=== PATIENT | male | born 1970 | race Caucasian/White ===

== ENCOUNTER 2022-05-19 18:34 | Observation (INO) ==
[2022-05-19] MEDS ORDERED: Iopamidol - 370 500 ML MLS IVP ONE (21:58)
[2022-05-19 23:00] LABS: Basophils % 0.7 %; Eosinophils # 0.1 K/mcL (0.0-0.6); Eosinophils % 2.9 %; Hematocrit 28.2 % (37.5-50.1); Hemoglobin 9.5 g/dL (12.9-16.9); Immature Granulocytes % 0.2 % (0-4); Immature Platelets 7.2 % (1.1-6.1); Lymphocytes % 24.5 %; Mean Corpuscular HGB Conc 33.7 g/dL (31.6-35.5); Mean Corpuscular Hemoglobin 36.4 pg (28.0-33.3); Mean Platelet Volume 11.5 fL (9.4-12.4); Monocytes # 0.5 K/mcL (0.0-1.3); Monocytes % 10.9 %; Neutrophils # 2.6 K/mcL (1.6-8.9); Nucleated Red Blood Cells 0.5 /100 WBC (0); Platelet Count 79 K/mcL (140-400); Red Blood Count 2.61 M/mcL (4.19-5.50); Red Cell Distribution Width 15.8 % (11.5-14.5); Segmented Neutrophils % 60.8 %; White Blood Count 4.2 K/mcL (4.3-11.1)
[2022-05-19 23:11] LABS: Prothrombin Time 22.4 Seconds (9.4-12.1)
[2022-05-19 23:14] LABS: Alanine Aminotransferase 52 Units/L (7-52); Albumin 2.7 g/dL (3.5-5.7); Albumin/Globulin Ratio 0.8 (1.1-2.2); Alkaline Phosphatase 132 Units/L (34-104); Aspartate Amino Transferase 91 Units/L (13-39); BUN/Creatinine Ratio 13 (6-26); Bilirubin,Total 11.7 mg/dL (0.3-1.0); Blood Urea Nitrogen 13 mg/dL (6-20); Calcium 7.9 mg/dL (8.6-10.3); Carbon Dioxide 31 mEq/L (23-29); Chloride 98 mEq/L (98-107); Globulin 3.5 g/dL (2.4-3.5); Glucose 133 mg/dL (70-105); Osmolality,Calculated 280 (280-300); Potassium 3.5 mEq/L (3.5-5.1); Sodium 134 mEq/L (136-145); Total Protein 6.2 g/dL (6.4-8.9); eGFR For African Americans > 60 (> 60); eGFR For Non-African Americans > 60 (> 60)
[2022-05-19] MEDS ORDERED: Morphine Sulfate 2 MG/ML SYRINGE IVP ONE (23:22)
[2022-05-20] MEDS ORDERED: Naloxone 0.4 MG/ML INJ IVP PRN (02:19)
[2022-05-20] MEDS ORDERED: Melatonin 3 MG TABLET PO PRN (02:19)
[2022-05-20] MEDS ORDERED: Lactulose Oral Soln 20 GM/30 ML UDC PO PRN (03:42)
[2022-05-20 05:55] LABS: Hematocrit 27.2 % (37.5-50.1); Hemoglobin 9.1 g/dL (12.9-16.9); Immature Granulocytes % 0.3 % (0-4); Mean Corpuscular HGB Conc 33.5 g/dL (31.6-35.5); Red Cell Distribution Width 15.9 % (11.5-14.5)
[2022-05-20 05:57] LABS: Basophils % 0.6 %; Eosinophils # 0.1 K/mcL (0.0-0.6); Immature Platelets 6.4 % (1.1-6.1); Lymphocytes # 1.1 K/mcL (0.6-4.6); Lymphocytes % 29.8 %; Mean Corpuscular Volume 107.5 fL (83.0-100.0); Mean Platelet Volume 11.9 fL (9.4-12.4); Monocytes # 0.5 K/mcL (0.0-1.3); Monocytes % 13.2 %; Neutrophils # 1.9 K/mcL (1.6-8.9); Platelet Count 78 K/mcL (140-400); Red Blood Count 2.53 M/mcL (4.19-5.50); Segmented Neutrophils % 53.1 %; White Blood Count 3.6 K/mcL (4.3-11.1)
[2022-05-20 06:16] LABS: Prothrombin Time 22.4 Seconds (9.4-12.1)
[2022-05-20 06:18] LABS: Alanine Aminotransferase 46 Units/L (7-52); Albumin 2.4 g/dL (3.5-5.7); Albumin/Globulin Ratio 0.8 (1.1-2.2); Alkaline Phosphatase 131 Units/L (34-104); Amylase 29 Units/L (29-103); Aspartate Amino Transferase 80 Units/L (13-39); BUN/Creatinine Ratio 13 (6-26); Bilirubin,Direct 4.9 mg/dL (0.0-0.2); Bilirubin,Indirect 5.3 mg/dL (0.0-1.0); Bilirubin,Total 10.2 mg/dL (0.3-1.0); Blood Urea Nitrogen 13 mg/dL (6-20); Calcium 7.9 mg/dL (8.6-10.3); Carbon Dioxide 30 mEq/L (23-29); Chloride 99 mEq/L (98-107); Globulin 3.2 g/dL (2.4-3.5); Glucose 113 mg/dL (70-105); Lactate Dehydrogenase 231 Units/L (140-271); Osmolality,Calculated 277 (280-300); Potassium 3.5 mEq/L (3.5-5.1); Sodium 133 mEq/L (136-145); Total Protein 5.6 g/dL (6.4-8.9); eGFR For African Americans > 60 (> 60); eGFR For Non-African Americans > 60 (> 60)
[2022-05-20] MEDS: Ibuprofen 400 MG TABLET PO PRN (06:40)
[2022-05-20 07:29] LABS: Hepatitis B Core IgM Nonreactive (Nonreactive)
[2022-05-20 07:30] LABS: Hepatitis A Antibody IgM Nonreactive (Nonreactive)
[2022-05-20] MEDS ORDERED: Furosemide 20 MG TABLET PO SCH (09:00)
[2022-05-20] MEDS: Furosemide 40 MG TABLET PO SCH ×2 (09:09→15:40)
[2022-05-20] MEDS: Nicotine 21 MG PATCH.TD24 TD SCH (09:10)
[2022-05-20] MEDS: Lactulose Oral Soln 20 GM/30 ML UDC PO SCH ×3 (09:10→21:37)
[2022-05-20] MEDS: cefTRIAXone 1,000 MG in 0.9 % Sodium Chloride 10 ML IVP SCH (09:14)
[2022-05-20] MEDS: FLUoxetine HCl 10 MG CAPSULE PO SCH (09:24)
[2022-05-20] MEDS: Tenofovir Disoproxil Fumarate 300 MG TABLET PO SCH (09:24)
[2022-05-20 11:02] LABS: Hepatitis B Surface Antigen Reactive (Nonreactive)
[2022-05-20 11:44] LABS: Hepatitis C Virus Antibody Reactive (Nonreactive)
[2022-05-20] MEDS: *HR* OxyCODONE ER (12 HR) 10 MG TABLET PO PRN (17:33)
[2022-05-21] MEDS: Furosemide 40 MG TABLET PO SCH ×2 (08:06→15:56)
[2022-05-21] MEDS: Nicotine 21 MG PATCH.TD24 TD SCH (08:06)
[2022-05-21] MEDS: FLUoxetine HCl 10 MG CAPSULE PO SCH (08:06)
[2022-05-21] MEDS: Lactulose Oral Soln 20 GM/30 ML UDC PO SCH ×3 (08:06→20:25)
[2022-05-21] MEDS: cefTRIAXone 1,000 MG in 0.9 % Sodium Chloride 10 ML IVP SCH (08:07)
[2022-05-21] MEDS: Tenofovir Disoproxil Fumarate 300 MG TABLET PO SCH (08:07)
[2022-05-21] MEDS ORDERED: 0.9 % Sodium Chloride 250 ML IVC ONE (08:17)
[2022-05-21 10:57] LABS: INR 1.9; Prothrombin Time 21.6 Seconds (9.4-12.1)
[2022-05-21 11:15] LABS: Albumin 2.4 g/dL (3.5-5.7); Albumin/Globulin Ratio 0.8 (1.1-2.2); Calcium 8.4 mg/dL (8.6-10.3); Globulin 3.2 g/dL (2.4-3.5); Magnesium 1.8 mg/dL (1.6-2.6); Phosphorous 3.6 mg/dL (2.7-4.5); Potassium 3.9 mEq/L (3.5-5.1); Total Protein 5.6 g/dL (6.4-8.9)
[2022-05-21 11:16] LABS: Albumin 2.3 g/dL (3.5-5.7); Albumin/Globulin Ratio 0.8 (1.1-2.2); Bilirubin,Direct 6.9 mg/dL (0.0-0.2); Bilirubin,Indirect 7.4 mg/dL (0.0-1.0); Bilirubin,Total 14.3 mg/dL (0.3-1.0); Total Protein 5.3 g/dL (6.4-8.9)
[2022-05-21] MEDS: Albumin 25% 25gram/100mL 25 GM/100 ML IV.SOLN IVPB SCH ×3 (11:18→22:50)
[2022-05-21 12:41] LABS: Basophils % 1.3 %; Eosinophils % 2.4 %; Red Cell Distribution Width 15.9 % (11.5-14.5)
[2022-05-21 12:43] LABS: Basophils # 0.1 K/mcL (0.0-0.2); Eosinophils # 0.1 K/mcL (0.0-0.6); Hematocrit 27.9 % (37.5-50.1); Hemoglobin 9.6 g/dL (12.9-16.9); Immature Granulocytes % 2.9 % (0-4); Immature Platelets 7.6 % (1.1-6.1); Lymphocytes # 1.3 K/mcL (0.6-4.6); Lymphocytes % 29.7 %; Mean Corpuscular HGB Conc 34.4 g/dL (31.6-35.5); Mean Corpuscular Hemoglobin 36.6 pg (28.0-33.3); Mean Corpuscular Volume 106.5 fL (83.0-100.0); Monocytes # 0.7 K/mcL (0.0-1.3); Monocytes % 15.7 %; Neutrophils # 2.2 K/mcL (1.6-8.9); Red Blood Count 2.62 M/mcL (4.19-5.50); White Blood Count 4.5 K/mcL (4.3-11.1)
[2022-05-21 12:53] LABS: Platelet Count 66 K/mcL (140-400)
[2022-05-21] MEDS: Ibuprofen 400 MG TABLET PO PRN (14:00)
[2022-05-21 19:23] VITALS: O2SAT 96
[2022-05-21 23:05] VITALS: BP 93/57; PULSE 70; TEMP 97.3
[2022-05-21] MEDS: *HR* OxyCODONE ER (12 HR) 10 MG TABLET PO PRN (23:08)
== END 2022-05-21 23:30 | disposition short-term general hospital (02) ==
LOC: EMEROOARM 18:34 → 3NENU 18:34 → SUATTDRO 05-20 02:14 → 3NENU 05-20 04:20
PROVIDERS: ADMIT Internal Medicine; ATTEND Internal Medicine

== ENCOUNTER 2022-07-23 11:21 | Observation (INO) ==
[2022-07-23] MEDS ORDERED: Iopamidol - 370 500 ML MLS IVP ONE (12:39)
[2022-07-23 12:53] LABS: Basophils # 0.1 K/mcL (0.0-0.2); Basophils % 0.7 %; Eosinophils # 0.2 K/mcL (0.0-0.6); Eosinophils % 2.6 %; Hematocrit 28.8 % (37.5-50.1); Hemoglobin 9.7 g/dL (12.9-16.9); Immature Granulocytes % 0.3 % (0-4); Lymphocytes # 1.1 K/mcL (0.6-4.6); Lymphocytes % 15.5 %; Mean Corpuscular HGB Conc 33.7 g/dL (31.6-35.5); Mean Corpuscular Hemoglobin 36.5 pg (28.0-33.3); Mean Corpuscular Volume 108.3 fL (83.0-100.0); Mean Platelet Volume 9.9 fL (9.4-12.4); Monocytes # 0.6 K/mcL (0.0-1.3); Monocytes % 8.7 %; Neutrophils # 5.1 K/mcL (1.6-8.9); Platelet Count 100 K/mcL (140-400); Red Blood Count 2.66 M/mcL (4.19-5.50); Red Cell Distribution Width 15.1 % (11.5-14.5); Segmented Neutrophils % 72.2 %
[2022-07-23 13:23] LABS: Alanine Aminotransferase 84 Units/L (7-52); Albumin 2.1 g/dL (3.5-5.7); Albumin/Globulin Ratio 0.6 (1.1-2.2); Alkaline Phosphatase 131 Units/L (34-104); Aspartate Amino Transferase 279 Units/L (13-39); BUN/Creatinine Ratio 21 (6-26); Bilirubin,Indirect 3.7 mg/dL (0.0-1.0); Bilirubin,Total 7.7 mg/dL (0.3-1.0); Blood Urea Nitrogen 22 mg/dL (6-20); Calcium 7.7 mg/dL (8.6-10.3); Carbon Dioxide 33 mEq/L (23-29); Chloride 88 mEq/L (98-107); Globulin 3.4 g/dL (2.4-3.5); Glucose 153 mg/dL (70-105); Lipase 39 Units/L (11-82); Osmolality,Calculated 272 (280-300); Potassium 2.6 mEq/L (3.5-5.1); Sodium 128 mEq/L (136-145); Total Protein 5.5 g/dL (6.4-8.9); Troponin I < 0.03 ng/mL (< 0.04)
[2022-07-23] MEDS ORDERED: cefTRIAXone 2,000 MG in 0.9 % Sodium Chloride 20 ML IVP ONE (14:22)
[2022-07-23 14:42] LABS: Bacteria,Urine Few per hpf (None-Few); Bilirubin,Urine Small (Negative); Blood,Urine Moderate (Negative); Clarity,Urine Clear (Clear); Color,Urine Dark-Yellow (Yellow); Glucose,Urine (UA) Normal (Normal); Hyaline Casts,Urine Few per lpf (None Seen); Ketones,Urine Negative (Negative); Leukocyte Esterase,Urine Negative (Negative); Mucus,Urine Few per lpf (None-Few); Nitrite,Urine Negative (Negative); PH,Urine 6.5 pH Units (5.0-8.0); Protein,Urine Trace mg/dL (Neg-Trace); Specific Gravity,Urine 1.027 (1.010-1.025); Squamous Epithelial Cell,Urine Few per hpf (None-Few); Urobilinogen,Urine >=8.0 mg/dL (Normal); WBC,Urine 0-3 per hpf (0-3)
[2022-07-23 15:00] LABS: INR 2.2; Prothrombin Time 24.7 Seconds (9.4-12.1)
[2022-07-23 15:25] LABS: Influenza A PCR Negative (Negative); Influenza B PCR Negative (Negative); Resp. Syncytial Virus PCR Negative (Negative)
[2022-07-23 15:37] LABS: SARS-CoV-2 by PCR (In House) Negative (Negative)
[2022-07-23] MEDS ORDERED: Ondansetron 4 MG/2 ML VIAL IVP PRN (16:07)
[2022-07-23] MEDS ORDERED: Naloxone 0.4 MG/ML INJ IVP PRN (16:07)
[2022-07-23] MEDS ORDERED: Acetaminophen 325 MG TABLET PO PRN (16:07)
[2022-07-23] MEDS ORDERED: Lactulose 200 GM, Sodium Chloride IRRigation 700 ML RC ONE (16:09)
[2022-07-23] MEDS: MetroNIDAZOLE 500 MG/100 ML 500 MG/100 ML BAG IVPB SCH (17:41)
[2022-07-23] MEDS: Lactulose Oral Soln 20 GM/30 ML UDC PO SCH (21:14)
[2022-07-24] MEDS: MetroNIDAZOLE 500 MG/100 ML 500 MG/100 ML BAG IVPB SCH ×2 (01:18→13:05)
[2022-07-24 05:02] LABS: Immature Granulocytes % 0.4 % (0-4); Mean Corpuscular Hemoglobin 36.8 pg (28.0-33.3)
[2022-07-24 05:04] LABS: Basophils % 0.7 %; Eosinophils # 0.2 K/mcL (0.0-0.6); Eosinophils % 3.3 %; Hematocrit 23.8 % (37.5-50.1); Hemoglobin 8.1 g/dL (12.9-16.9); Lymphocytes # 1.3 K/mcL (0.6-4.6); Lymphocytes % 23.9 %; Mean Corpuscular Volume 108.2 fL (83.0-100.0); Mean Platelet Volume 9.8 fL (9.4-12.4); Monocytes # 0.5 K/mcL (0.0-1.3); Monocytes % 8.7 %; Neutrophils # 3.5 K/mcL (1.6-8.9); Nucleated Red Blood Cells 0.4 /100 WBC (0); Red Cell Distribution Width 15.5 % (11.5-14.5); White Blood Count 5.5 K/mcL (4.3-11.1)
[2022-07-24 05:11] LABS: Platelet Count 84 K/mcL (140-400)
[2022-07-24 05:26] LABS: Alanine Aminotransferase 66 Units/L (7-52); Albumin 1.7 g/dL (3.5-5.7); Albumin/Globulin Ratio 0.6 (1.1-2.2); Alkaline Phosphatase 99 Units/L (34-104); Aspartate Amino Transferase 201 Units/L (13-39); BUN/Creatinine Ratio 20 (6-26); Bilirubin,Direct 3.1 mg/dL (0.0-0.2); Bilirubin,Indirect 3.1 mg/dL (0.0-1.0); Bilirubin,Total 6.2 mg/dL (0.3-1.0); Blood Urea Nitrogen 19 mg/dL (6-20); Calcium 7.3 mg/dL (8.6-10.3); Carbon Dioxide 32 mEq/L (23-29); Chloride 92 mEq/L (98-107); Globulin 2.8 g/dL (2.4-3.5); Glucose 121 mg/dL (70-105); Magnesium 1.7 mg/dL (1.6-2.6); Osmolality,Calculated 270 (280-300); Potassium 3.3 mEq/L (3.5-5.1); Sodium 128 mEq/L (136-145); Total Protein 4.5 g/dL (6.4-8.9)
[2022-07-24 08:19] VITALS: O2SAT 87
[2022-07-24] MEDS: Lactulose Oral Soln 20 GM/30 ML UDC PO SCH (08:50)
[2022-07-24 10:24] LABS: RBC,Peritoneal Fluid < 2000 RBC/mcL
[2022-07-24 10:25] LABS: Amphetamine Screen,Urine Positive ng/mL (Cutoff=1000); Barbiturate Screen,Urine Negative ng/mL (Cutoff=200); Benzodiazepines Screen,Urine Negative ng/mL (Cutoff=200); Cannabinoid Screen,Urine Negative ng/mL (Cutoff = 50); Cocaine Screen,Urine Negative ng/mL (Cutoff= 300); Opiate Screen,Urine Negative ng/mL (Cutoff=300); Phencyclidine Screen,Urine Negative ng/mL (Cutoff=25)
[2022-07-24 10:51] LABS: Glucose,Peritoneal Fluid 114 mg/dL (No Ref Range); LDH,Peritoneal Fluid < 25 Units/L (No Ref Range); Total Protein,Peritoneal Fluid < 2.0 g/dL
[2022-07-24] MEDS ORDERED: Tenofovir Disoproxil Fumarate 300 MG TABLET PO SCH (11:15)
[2022-07-24] MEDS ORDERED: Potassium Chloride Elixir 20 MEQ/15 ML UDC PO ONE (11:22)
[2022-07-24] MEDS ORDERED: cefTRIAXone 1,000 MG in Water for inj. (sterile) 10 ML IVP SCH (13:00)
[2022-07-24 13:28] VITALS: BP 91/46; PULSE 79; TEMP 97.4
[2022-07-24 13:56] LABS: Appearance of Peritoneal Fl CLEAR (Clear); Basophils,Peritoneal Fluid 0 %; Eosinophils,Peritoneal Fluid 0 %
[2022-07-24] MEDS ORDERED: MetroNIDAZOLE 500 MG/100 ML 500 MG/100 ML BAG IVPB SCH ×2 (14:00→21:00)
[2022-07-24] MEDS ORDERED: Furosemide 40 MG TABLET PO SCH (17:00)
[2022-07-25] MEDS ORDERED: FLUoxetine HCl 10 MG CAPSULE PO SCH (09:00)
[2022-07-25] MEDS ORDERED: Tenofovir Disoproxil Fumarate 300 MG TABLET PO SCH (09:00)
[2022-07-26 10:32] LABS: Fluid Source for Albumin ASCITES
== END 2022-07-24 15:36 | disposition home or self-care (01) ==
LOC: EMEROOARM 11:21 → 2NENU 11:21
PROVIDERS: ADMIT Hospitalist; ATTEND Hospitalist

== ENCOUNTER 2022-08-01 20:56 | Inpatient (IN) ==
[2022-08-01 22:44] LABS: Basophils # 0.1 K/mcL (0.0-0.2); Basophils % 0.8 %; Eosinophils # 0.1 K/mcL (0.0-0.6); Eosinophils % 1.2 %; Hematocrit 25.5 % (37.5-50.1); Hemoglobin 8.3 g/dL (12.9-16.9); Immature Granulocytes % 0.5 % (0-4); Immature Platelets 4.4 % (1.1-6.1); Lymphocytes % 20.6 %; Mean Corpuscular HGB Conc 32.5 g/dL (31.6-35.5); Mean Corpuscular Hemoglobin 36.4 pg (28.0-33.3); Mean Corpuscular Volume 111.8 fL (83.0-100.0); Monocytes # 0.5 K/mcL (0.0-1.3); Monocytes % 6.8 %; Red Blood Count 2.28 M/mcL (4.19-5.50); Red Cell Distribution Width 15.6 % (11.5-14.5); Segmented Neutrophils % 70.1 %; White Blood Count 7.5 K/mcL (4.3-11.1)
[2022-08-01 22:45] LABS: Lymphocytes # 1.6 K/mcL (0.6-4.6); Neutrophils # 5.3 K/mcL (1.6-8.9); Platelet Count 68 K/mcL (140-400)
[2022-08-01 22:46] LABS: Macrocytosis Present (Not Present)
[2022-08-01 22:50] LABS: Prothrombin Time 22.5 Seconds (9.4-12.1)
[2022-08-02 00:01] LABS: Albumin 1.9 g/dL (3.5-5.7); Albumin/Globulin Ratio 0.6 (1.1-2.2); Bilirubin,Direct 3.9 mg/dL (0.0-0.2); Bilirubin,Indirect 4.2 mg/dL (0.0-1.0); Bilirubin,Total 8.1 mg/dL (0.3-1.0); Calcium 8.2 mg/dL (8.6-10.3); Globulin 3.2 g/dL (2.4-3.5); Potassium 4.1 mEq/L (3.5-5.1); Total Protein 5.1 g/dL (6.4-8.9); Troponin I 0.03 ng/mL (< 0.04)
[2022-08-02] MEDS ORDERED: 0.9 % Sodium Chloride 500 ML IVC ONE (00:08)
[2022-08-02] MEDS ORDERED: Lactulose Oral Soln 20 GM/30 ML UDC PO ONE (00:25)
[2022-08-02] MEDS ORDERED: Melatonin 3 MG TABLET PO PRN (02:04)
[2022-08-02] MEDS ORDERED: Naloxone 0.4 MG/ML INJ IVP PRN (02:04)
[2022-08-02] MEDS ORDERED: Ondansetron ODT 4 MG TAB.RAPDIS SL PRN (02:04)
[2022-08-02 03:53] LABS: Basophils % 0.6 %; Mean Platelet Volume 10.5 fL (9.4-12.4); Red Cell Distribution Width 15.9 % (11.5-14.5)
[2022-08-02 03:55] LABS: Eosinophils # 0.1 K/mcL (0.0-0.6); Eosinophils % 2.1 %; Hematocrit 23.9 % (37.5-50.1); Hemoglobin 7.9 g/dL (12.9-16.9); Immature Granulocytes % 0.6 % (0-4); Immature Platelets 3.7 % (1.1-6.1); Lymphocytes # 1.7 K/mcL (0.6-4.6); Lymphocytes % 25.6 %; Mean Corpuscular HGB Conc 33.1 g/dL (31.6-35.5); Mean Corpuscular Hemoglobin 36.6 pg (28.0-33.3); Mean Corpuscular Volume 110.6 fL (83.0-100.0); Monocytes # 0.6 K/mcL (0.0-1.3); Monocytes % 8.4 %; Red Blood Count 2.16 M/mcL (4.19-5.50); Segmented Neutrophils % 62.7 %; White Blood Count 6.8 K/mcL (4.3-11.1)
[2022-08-02 03:57] LABS: Neutrophils # 4.3 K/mcL (1.6-8.9); Platelet Count 62 K/mcL (140-400)
[2022-08-02 04:01] LABS: Prothrombin Time 21.8 Seconds (9.4-12.1)
[2022-08-02 04:12] LABS: Albumin 1.8 g/dL (3.5-5.7); Albumin/Globulin Ratio 0.6 (1.1-2.2); Bilirubin,Direct 3.5 mg/dL (0.0-0.2); Bilirubin,Indirect 3.8 mg/dL (0.0-1.0); Bilirubin,Total 7.3 mg/dL (0.3-1.0); Calcium 7.9 mg/dL (8.6-10.3); Magnesium 1.7 mg/dL (1.6-2.6); Potassium 3.9 mEq/L (3.5-5.1); Total Protein 4.8 g/dL (6.4-8.9)
[2022-08-02 04:25] LABS: Thyroid Stimulating Hormone 8.752 mcIU/mL (0.340-5.600)
[2022-08-02 04:30] LABS: Macrocytosis Present (Not Present); Platelet Estimate Decreased (Normal)
[2022-08-02] MEDS ORDERED: Vancomycin 1,500 MG/265 ML IV.SOLN IVPB ONE (07:00)
[2022-08-02] MEDS: 0.9 % Sodium Chloride 1,000 ML IVC SCH ×2 (07:26→19:57)
[2022-08-02] MEDS ORDERED: Lactulose Oral Soln 20 GM/30 ML UDC PO SCH (09:00)
[2022-08-02 10:19] LABS: Mean Platelet Volume 10.7 fL (9.4-12.4); Red Cell Distribution Width 15.9 % (11.5-14.5)
[2022-08-02 10:21] LABS: Hemoglobin 7.7 g/dL (12.9-16.9); Immature Platelets 4.6 % (1.1-6.1); Mean Corpuscular HGB Conc 33.5 g/dL (31.6-35.5); Mean Corpuscular Hemoglobin 36.8 pg (28.0-33.3); Red Blood Count 2.09 M/mcL (4.19-5.50); White Blood Count 6.2 K/mcL (4.3-11.1)
[2022-08-02] MEDS: cefTRIAXone 1,000 MG in 0.9 % Sodium Chloride Mini Bag 100 ML IVPB SCH (11:18)
[2022-08-02 14:03] LABS: Bilirubin,Urine Small (Negative); Blood,Urine Negative (Negative); Clarity,Urine Clear (Clear); Color,Urine Dark-Yellow (Yellow); Glucose,Urine (UA) Normal (Normal); Ketones,Urine Negative (Negative); Leukocyte Esterase,Urine Negative (Negative); Nitrite,Urine Negative (Negative); Protein,Urine Trace mg/dL (Neg-Trace); Specific Gravity,Urine 1.025 (1.010-1.025); Urobilinogen,Urine >=8.0 mg/dL (Normal)
[2022-08-02 14:07] LABS: Amorphous Sediment,Urine Few per hpf (None-Few); Bacteria,Urine Few per hpf (None-Few); Mucus,Urine Few per lpf (None-Few); RBC,Urine 0-3 per hpf (0-3); Squamous Epithelial Cell,Urine Few per hpf (None-Few); WBC,Urine 0-3 per hpf (0-3)
[2022-08-02] MEDS ORDERED: *HR* LORazepam 1 MG TABLET PO PRN ×3 (15:13)
[2022-08-02] MEDS ORDERED: Iopamidol - 370 500 ML MLS IVP ONE (15:21)
[2022-08-02] MEDS ORDERED: *HR* Labetalol 20 MG/4 ML SYRINGE IVP PRN (15:44)
[2022-08-02 16:10] LABS: Amphetamine Screen,Urine Positive ng/mL (Cutoff=1000); Barbiturate Screen,Urine Negative ng/mL (Cutoff=200); Benzodiazepines Screen,Urine Negative ng/mL (Cutoff=200); Cannabinoid Screen,Urine Negative ng/mL (Cutoff = 50); Cocaine Screen,Urine Negative ng/mL (Cutoff= 300); Opiate Screen,Urine Negative ng/mL (Cutoff=300); Phencyclidine Screen,Urine Negative ng/mL (Cutoff=25)
[2022-08-02 18:24] LABS: Adenovirus Not Detected (Not Detect); Coronavirus 229E Not Detected (Not Detect); Coronavirus HKU1 Not Detected (Not Detect); Coronavirus NL63 Not Detected (Not Detect); Coronavirus OC43 Not Detected (Not Detect)
[2022-08-02 18:25] LABS: Bordetella Pertussis Not Detected (Not Detect); Chlamydophila pneumoniae Not Detected (Not Detect); Human Metapneumovirus Not Detected (Not Detect); Human Rhinovirus/Enterovirus DETECTED (Not Detect); Influenza A Subtype 2009 H1 Not Detected (Not Detect); Influenza B Not Detected (Not Detect); Mycoplasma pneumoniae Not Detected (Not Detect); Parainfluenza Virus 1 Not Detected (Not Detect); Parainfluenza Virus 2 Not Detected (Not Detect); Parainfluenza Virus 3 Not Detected (Not Detect); Parainfluenza Virus 4 Not Detected (Not Detect); Respiratory Syncytial Virus Not Detected (Not Detect); SARS-CoV-2 Not Detected (Not Detect)
[2022-08-02] MEDS: Lactulose Oral Soln 20 GM/30 ML UDC PO SCH (21:30)
[2022-08-03] MEDS: 0.9 % Sodium Chloride 1,000 ML IVC SCH ×3 (00:31→16:36)
[2022-08-03] MEDS: Levothyroxine 25 MCG TABLET PO SCH (06:00)
[2022-08-03 06:41] LABS: Hematocrit 23.9 % (37.5-50.1); Mean Platelet Volume 10.7 fL (9.4-12.4)
[2022-08-03 06:42] LABS: Hemoglobin 7.9 g/dL (12.9-16.9); Immature Platelets 4.4 % (1.1-6.1); Mean Corpuscular HGB Conc 33.1 g/dL (31.6-35.5); Mean Corpuscular Hemoglobin 37.1 pg (28.0-33.3); Mean Corpuscular Volume 112.2 fL (83.0-100.0); Nucleated Red Blood Cells 0.3 /100 WBC (0); Red Blood Count 2.13 M/mcL (4.19-5.50); Red Cell Distribution Width 15.9 % (11.5-14.5); White Blood Count 5.7 K/mcL (4.3-11.1)
[2022-08-03 06:48] LABS: Platelet Count 60 K/mcL (140-400)
[2022-08-03 06:59] LABS: Albumin 1.7 g/dL (3.5-5.7); Albumin/Globulin Ratio 0.6 (1.1-2.2); Bilirubin,Direct 3.6 mg/dL (0.0-0.2); Bilirubin,Indirect 4.3 mg/dL (0.0-1.0); Bilirubin,Total 7.9 mg/dL (0.3-1.0); Calcium 7.6 mg/dL (8.6-10.3); Magnesium 1.5 mg/dL (1.6-2.6); Potassium 3.8 mEq/L (3.5-5.1); Total Protein 4.7 g/dL (6.4-8.9)
[2022-08-03 07:15] LABS: Lymphocytes # 0.7 K/mcL (0.6-4.6); Monocytes # 0.1 K/mcL (0.0-1.3); Neutrophils # 4.9 K/mcL (1.6-8.9); Platelet Estimate Marked Decrease (Normal)
[2022-08-03] MEDS: Vitamin B Complex/Vit C/Vit E 1 EACH TABLET PO SCH (08:16)
[2022-08-03] MEDS: Thiamine (B-1) 100 MG TABLET PO SCH (08:16)
[2022-08-03] MEDS: Lactulose Oral Soln 20 GM/30 ML UDC PO SCH ×4 (08:16→20:24)
[2022-08-03] MEDS: Folic Acid 1 MG TABLET PO SCH (08:16)
[2022-08-03] MEDS: cefTRIAXone 1,000 MG in 0.9 % Sodium Chloride Mini Bag 100 ML IVPB SCH (09:29)
[2022-08-03] MEDS: Vancomycin 1,500 MG/265 ML IV.SOLN IVPB SCH (10:30)
[2022-08-04] MEDS: 0.9 % Sodium Chloride 1,000 ML IVC SCH ×2 (03:06→16:26)
[2022-08-04] MEDS: *HR* OxyCODONE Immed Rel 5 MG TABLET PO PRN (03:06)
[2022-08-04] MEDS: Levothyroxine 25 MCG TABLET PO SCH (05:18)
[2022-08-04 05:47] LABS: Mean Platelet Volume 10.6 fL (9.4-12.4); Red Cell Distribution Width 16.1 % (11.5-14.5)
[2022-08-04 05:49] LABS: Basophils # 0.1 K/mcL (0.0-0.2); Basophils % 1.2 %; Eosinophils # 0.2 K/mcL (0.0-0.6); Eosinophils % 3.3 %; Hematocrit 25.1 % (37.5-50.1); Immature Granulocytes % 0.7 % (0-4); Immature Platelets 3.8 % (1.1-6.1); Lymphocytes # 1.4 K/mcL (0.6-4.6); Mean Corpuscular HGB Conc 31.9 g/dL (31.6-35.5); Mean Corpuscular Volume 116.2 fL (83.0-100.0); Monocytes # 0.6 K/mcL (0.0-1.3); Monocytes % 8.5 %; Neutrophils # 4.4 K/mcL (1.6-8.9); Red Blood Count 2.16 M/mcL (4.19-5.50); Segmented Neutrophils % 65.3 %; White Blood Count 6.7 K/mcL (4.3-11.1)
[2022-08-04 05:52] LABS: Platelet Count 66 K/mcL (140-400)
[2022-08-04 06:07] LABS: Albumin 1.8 g/dL (3.5-5.7); Albumin/Globulin Ratio 0.6 (1.1-2.2); Bilirubin,Direct 3.9 mg/dL (0.0-0.2); Bilirubin,Indirect 4.5 mg/dL (0.0-1.0); Bilirubin,Total 8.4 mg/dL (0.3-1.0); Calcium 7.4 mg/dL (8.6-10.3); Magnesium 1.6 mg/dL (1.6-2.6); Potassium 3.6 mEq/L (3.5-5.1); Total Protein 4.8 g/dL (6.4-8.9)
[2022-08-04 06:17] LABS: Macrocytosis Present (Not Present); Platelet Estimate Decreased (Normal)
[2022-08-04] MEDS: Vancomycin 1,500 MG/265 ML IV.SOLN IVPB SCH (08:02)
[2022-08-04] MEDS ORDERED: Vancomycin 1,750 MG/517.5 ML IV.SOLN IVPB SCH (09:00)
[2022-08-04] MEDS: Patient Taking Own Medication 1 EACH PO SCH (10:50)
[2022-08-04] MEDS: Thiamine (B-1) 100 MG TABLET PO SCH (10:56)
[2022-08-04] MEDS: cefTRIAXone 1,000 MG in 0.9 % Sodium Chloride Mini Bag 100 ML IVPB SCH (10:57)
[2022-08-04] MEDS: Folic Acid 1 MG TABLET PO SCH (10:57)
[2022-08-04] MEDS: Vitamin B Complex/Vit C/Vit E 1 EACH TABLET PO SCH (10:57)
[2022-08-04] MEDS: FLUoxetine HCl 10 MG CAPSULE PO SCH (10:57)
[2022-08-04] MEDS: Lactulose Oral Soln 20 GM/30 ML UDC PO SCH ×3 (10:57→22:27)
[2022-08-04 17:44] LABS: ABG Base Excess 3 mEq/L (-2 to 3); ABG HCO3 28 mEq/L (21-27); ABG Oxygen Saturation 92 % (95-98); ABG PCO2 41 mmHg (35-45); ABG PH 7.44 pH Units (7.32-7.45); ABG PO2 62 mmHg (85-104); ABG TCO2 29 mEq/L (20-26)
[2022-08-05] MEDS: 0.9 % Sodium Chloride 1,000 ML IVC SCH ×3 (03:31→15:11)
[2022-08-05] MEDS: Levothyroxine 25 MCG TABLET PO SCH (05:24)
[2022-08-05] MEDS: *HR* OxyCODONE Immed Rel 5 MG TABLET PO PRN ×2 (05:24→19:55)
[2022-08-05 07:36] LABS: Albumin 1.9 g/dL (3.5-5.7); Albumin/Globulin Ratio 0.5 (1.1-2.2); Bilirubin,Direct 2.4 mg/dL (0.0-0.2); Bilirubin,Indirect 4.4 mg/dL (0.0-1.0); Bilirubin,Total 6.8 mg/dL (0.3-1.0); Globulin 3.5 g/dL (2.4-3.5); Total Protein 5.4 g/dL (6.4-8.9)
[2022-08-05] MEDS: Lactulose Oral Soln 20 GM/30 ML UDC PO SCH ×3 (08:17→19:55)
[2022-08-05] MEDS: Thiamine (B-1) 100 MG TABLET PO SCH (08:17)
[2022-08-05] MEDS: FLUoxetine HCl 10 MG CAPSULE PO SCH (08:17)
[2022-08-05] MEDS: Patient Taking Own Medication 1 EACH PO SCH (08:17)
[2022-08-05] MEDS: Folic Acid 1 MG TABLET PO SCH (08:17)
[2022-08-05] MEDS: cefTRIAXone 1,000 MG in 0.9 % Sodium Chloride Mini Bag 100 ML IVPB SCH (08:17)
[2022-08-06] MEDS: *HR* OxyCODONE Immed Rel 5 MG TABLET PO PRN ×2 (03:28→09:32)
[2022-08-06 04:20] LABS: Alanine Aminotransferase 78 Units/L (7-52); Albumin 1.6 g/dL (3.5-5.7); Albumin/Globulin Ratio 0.4 (1.1-2.2); Alkaline Phosphatase 129 Units/L (34-104); Aspartate Amino Transferase 152 Units/L (13-39); BUN/Creatinine Ratio 18 (6-26); Bilirubin,Direct 2.8 mg/dL (0.0-0.2); Bilirubin,Indirect 3.9 mg/dL (0.0-1.0); Bilirubin,Total 6.7 mg/dL (0.3-1.0); Blood Urea Nitrogen 17 mg/dL (6-20); Carbon Dioxide 21 mEq/L (23-29); Chloride 103 mEq/L (98-107); Globulin 3.9 g/dL (2.4-3.5); Glucose 134 mg/dL (70-105); Osmolality,Calculated 276 (280-300); Potassium 4.1 mEq/L (3.5-5.1); Sodium 131 mEq/L (136-145); Total Protein 5.5 g/dL (6.4-8.9)
[2022-08-06 05:21] LABS: Hemoglobin 9.2 g/dL (12.9-16.9)
[2022-08-06 05:23] LABS: Basophils # 0.1 K/mcL (0.0-0.2); Basophils % 1.7 %; Eosinophils # 0.4 K/mcL (0.0-0.6); Hematocrit 28.7 % (37.5-50.1); Immature Granulocytes % 0.5 % (0-4); Immature Platelets 3.2 % (1.1-6.1); Lymphocytes # 1.7 K/mcL (0.6-4.6); Lymphocytes % 24.9 %; Mean Corpuscular HGB Conc 32.1 g/dL (31.6-35.5); Mean Corpuscular Hemoglobin 37.1 pg (28.0-33.3); Mean Corpuscular Volume 115.7 fL (83.0-100.0); Mean Platelet Volume 10.5 fL (9.4-12.4); Monocytes # 0.8 K/mcL (0.0-1.3); Monocytes % 11.6 %; Neutrophils # 3.7 K/mcL (1.6-8.9); Red Blood Count 2.48 M/mcL (4.19-5.50); Red Cell Distribution Width 16.3 % (11.5-14.5); Segmented Neutrophils % 55.3 %; White Blood Count 6.7 K/mcL (4.3-11.1)
[2022-08-06 05:39] LABS: Platelet Count 92 K/mcL (140-400)
[2022-08-06] MEDS: Levothyroxine 25 MCG TABLET PO SCH (06:23)
[2022-08-06] MEDS: cefTRIAXone 1,000 MG in 0.9 % Sodium Chloride Mini Bag 100 ML IVPB SCH (09:31)
[2022-08-06] MEDS: 0.9 % Sodium Chloride 1,000 ML IVC SCH ×2 (09:32→22:19)
[2022-08-06] MEDS: Folic Acid 1 MG TABLET PO SCH (09:33)
[2022-08-06] MEDS: FLUoxetine HCl 10 MG CAPSULE PO SCH (09:33)
[2022-08-06] MEDS: Lactulose Oral Soln 20 GM/30 ML UDC PO SCH ×3 (09:33→20:20)
[2022-08-06] MEDS: Thiamine (B-1) 100 MG TABLET PO SCH (09:33)
[2022-08-06] MEDS: Patient Taking Own Medication 1 EACH PO SCH (09:34)
[2022-08-07 02:59] LABS: Albumin 1.7 g/dL (3.5-5.7); Albumin/Globulin Ratio 0.5 (1.1-2.2); Bilirubin,Direct 2.6 mg/dL (0.0-0.2); Bilirubin,Indirect 2.8 mg/dL (0.0-1.0); Bilirubin,Total 5.4 mg/dL (0.3-1.0); Globulin 3.4 g/dL (2.4-3.5); Total Protein 5.1 g/dL (6.4-8.9)
[2022-08-07] MEDS: Levothyroxine 25 MCG TABLET PO SCH (06:21)
[2022-08-07] MEDS: cefTRIAXone 1,000 MG in 0.9 % Sodium Chloride Mini Bag 100 ML IVPB SCH (09:30)
[2022-08-07] MEDS: FLUoxetine HCl 10 MG CAPSULE PO SCH (09:31)
[2022-08-07] MEDS: Folic Acid 1 MG TABLET PO SCH (09:31)
[2022-08-07] MEDS: 0.9 % Sodium Chloride 1,000 ML IVC SCH ×2 (09:31→14:44)
[2022-08-07] MEDS: Thiamine (B-1) 100 MG TABLET PO SCH (09:31)
[2022-08-07] MEDS: Lactulose Oral Soln 20 GM/30 ML UDC PO SCH ×2 (09:31→14:51)
[2022-08-07] MEDS: Patient Taking Own Medication 1 EACH PO SCH (09:32)
[2022-08-07] MEDS: *HR* OxyCODONE Immed Rel 5 MG TABLET PO PRN (14:51)
[2022-08-07 16:39] VITALS: BP 102/65; PULSE 75; TEMP 98; O2SAT 95
== END 2022-08-07 19:40 | disposition home or self-care (01) | DRG 280 ==
LOC: EMEROOARM 20:56 → 2ANU 20:56 → SUATTDRO 08-02 01:58 → 2ANU 08-02 02:31
PROVIDERS: ADMIT Student in an Organized Health Care Education/Training Program; ATTEND Hospitalist